=== PATIENT | female | born 1940 | race Caucasian/White ===

== ENCOUNTER 2021-12-15 11:24 | Emergency (ER) | payer MEDICARE, SELFPAY ==
[2021-12-15 11:34] VITALS: BP 168/87; PULSE 96; RESP 20; TEMP 36.4; O2SAT 95
--- NOTE | 2021-12-15 11:36 | XR_ITS ---
WS: [id number] Exam: XR chest 1V portable [id number] Date/Time of Exam: 12/15/2021 11:43 AM Reason For Exam: cp No comparisons. The lungs are fully expanded and clear. Normal cardiomediastinal silhouette. No pleural effusions. Le voscoliosis of the T-spine. Bony structures are otherwise intact. XR/XR chest 1V portable [id number] IMPRESSION: 1. No acute cardiopulmonary finding.
--- NOTE | 2021-12-15 11:38 | W.ED.CHESTPA ---
HPI - Chest Pain General: Chief Complaint: Chest Pain Stated Complaint: Chest Pain, PCP said she had a minor stroke Time Seen by Provider: 12/15/21 11:31 History of Present Illness: 81-year-old female presents with chest pain. She reports that started last night during the night. Patient reports that she has had 3 brief episodes. Nothing seems to make it worse or better. She is not currently having any pain at this time. Her last time she had any chest pain was around 6 AM this morning. She reports it is kind of diffusely across her mid chest. She had no nausea, vomiting, shortness of breath, diaphoresis or radiation of the pain. Associated symptoms: Deny abdominal pain, dyspnea, fever(s), nausea, palpitations or vomiting Review of Systems Const: Denies: fever(s) or chills Eyes: Denies: change in vision Card: Reports: chest pain; Denies: palpitations, irregular heart rhythm, edema or lightheadedness Resp: Denies: dyspnea or productive cough GI: Denies: abdominal pain, nausea or vomiting : Denies: flank pain or difficulty voiding Musc: Reports: back pain (chronic ); Denies: neck pain Neuro: Denies: headache(s) or numbness in extremities Psych: Denies: anxiety or depression Rio/Lymph: Denies: easy bruising Physical Exam Const: COMMON NORMALS: no acute distress, patient oriented x3 and alert Chest: CHEST: Yes Symmetrical chest wall rise Resp: COMMON NORMALS: normal respiratory effort, No retractions, No use of accessory muscles and clear to auscultation bilaterally AUSCULTATION: clear to auscultation bilaterally Cardio: COMMON NORMALS: regular rate, regular rhythm and Peripheral pulses 2+ throughout RATE: regular rate RHYTHM: regular rhythm PERIPHERAL PULSES: Peripheral pulses 2+ throughout GI: COMMON NORMALS: Normal to inspection, nondistended, normoactive bowel sounds present and Soft to palpation PALPATION: Yes Soft to palpation Neuro: COMMON NORMALS: patient oriented x3 and CN's II-XII intact bilaterally SENSORIUM/ORIENTATION: Yes alert Psych: COMMON NORMALS: mental status grossly normal, cooperative and normal affect Skin: COMMON NORMALS: no rashes or lesions noted GENERAL SKIN EXAM: no rashes or lesions noted Course Vital Signs: Vital signs: Vital Signs Temperature 97.6 F 12/15/21 13:15 Pulse Rate 96 12/15/21 13:15 Respiratory Rate 20 H 12/15/21 13:15 Blood Pressure 157/82 12/15/21 16:11 Pulse Oximetry 95 12/15/21 16:11 Oxygen Delivery Me thod 12/15/21 14:56 MDM - Chest Pain Medical Decision Making Patient with new negative troponins. Patient symptoms has been going on and off for 3 days with no symptoms for at least 6+ hours. Patient patient shows no acute findings on EKG. Patient does have urinary tract infection which could contribute to her generalized malaise which we will treat. Patient stable and will be discharged home. I recommended she follow-up with her primary care provider for further outpatient management Lab Data : 12/15/21 12:20 12/15/21 12:20 Radiology Impressions Chest X-Ray 12/15/21 11:36 IMPRESSION: 1. No acute cardiopulmonary finding. Laboratory Results WBC 7.9 10^3/uL (4.0-10.0) 12/15/21 12:20 RBC 4.73 10^6/uL (4.1-5.3) 12/15/21 12:20 Hgb 14.8 g/dL (11.5-15.3) 12/15/21 12:20 Hct 44.6 % (37.0-47.0) 12/15/21 12:20 MCV 94.3 fl (81-99) 12/15/21 12:20 MCH 31.3 pg (28.0-34.0) 12/15/21 12:20 MCHC 33.2 g/dL (30.0-36.0) 12/15/21 12:20 RDW 12.7 % (12.1-15.1) 12/15/21 12:20 Plt Count 204 10^3/cmm (130-400) 12/15/21 12:20 MPV 10.7 fL (7.4-10.4) H 12/15/21 12:20 Neut % (Auto) 73.7 % 12/15/21 12:20 Lymph % (Auto) 17.7 % 12/15/21 12:20 [place] % (Auto) 7.1 % 12/15/21 12:20 Eos % (Auto) 0.6 % 12/15/21 12:20 Baso % (Auto) 0.5 % 12/15/21 12:20 Neut # (Auto) 5.80 10^3/uL (1.8-7.7) 12/15/21 12:20 Lymph # (Auto) 1.4 10^3/uL (0.8-4.8) 12/15/21 12:20 [place] # (Auto) 0.6 10^3/uL (0.2-0.9) 12/15/21 12:20 Eos # (Auto) 0.1 10^3/uL (0.0-0.8) 12/15/21 12:20 Baso # (Auto) 0.0 10^3/uL (0.0-0.1) 12/15/21 12:20 Nucleated RBC % (auto) 0 % 12/15/21 12:20 Nucleated RBCs # 0.0 /100WBC 12/15/21 12:20 Sodium 141 mmol/L (136-145) 12/15/21 12:20 Potassium 4.2 mmol/L (3.5-5.1) 12/15/21 12:20 Chloride 102 mmol/L (98-107) 12/15/21 12:20 Carbon Dioxide 27 mmol/L (22-29) 12/15/21 12:20 Anion Gap 16.2 (5-19) 12/15/21 12:20 BUN 18 mg/dL (8-23) 12/15/21 12:20 Creatinine 0.6 mg/dL (0.5-0.9) 12/15/21 12:20 GFR Calculation Not Reportable 12/15/21 12:20 Glucose 91 mg/dL (65-115) 12/15/21 12:20 Calculated Osmolality 293 mOsm/kg (285-295) 12/15/21 12:20 Calcium 10.2 mg/dL (8.5-10.5) 12/15/21 12:20 Total Bilirubin 0.6 mg/dL (0.15-1.2) 12/15/21 12:20 AST 18 U/L (0-32) 12/15/21 12:20 ALT 23 U/L (0-33) 12/15/21 12:20 Alkaline Phosphatase 106 U/L (35-105) H 12/15/21 12:20 Troponin T Baseline 16 ng/L (0-10) H 12/15/21 12:20 Troponin T 120 Minute 14.93 ng/L (0-10) H 12/15/21 14:23 Delta Troponin T -1.07 ABS# (0-10) L 12/15/21 14:23 NT-Pro-B Natriuret Pep 407 pg/mL (0-450) 12/15/21 12:20 Total Protein 7.1 g/dL (6.6-8.7) 12/15/21 12:20 Albumin 4.5 g/dL (3.5-5.2) 12/15/21 12:20 Globulin 2.6 g/dL (1.3-4.6) 12/15/21 12:20 Lipase 20 U/L (13-60) 12/15/21 12:20 Urine Color Dark yellow (Yellow) 12/15/21 12:57 Urine Appearance Clear (CLEAR) 12/15/21 12:57 Urine pH 5 (5-7) 12/15/21 12:57 Ur Specific [place] 1.025 (1.005-1.030) 12/15/21 12:57 Urine Protein 1+ (Negative) H 12/15/21 12:57 Urine Glucose (UA) Norm (Normal) 12/15/21 12:57 Urine Ketones 2+ (Negative) H 12/15/21 12:57 Urine Blood 2+ (Negative) H 12/15/21 12:57 Urine Nitrate Positive (Negative) H 12/15/21 12:57 Urine Bilirubin Neg (Negative) 12/15/21 12:57 Urine Urobilinogen Neg mg/dL (Negative) 12/15/21 12:57 Ur Leukocyte Esterase Negative (Negative) 12/15/21 12:57 Urine RBC 0-4 /hpf (0-2) H 12/15/21 12:57 Urine WBC 15-25 /hpf (0-5) H 12/15/21 12:57 Ur Squamous Epith Cells 0-4 /hpf (0-5) H 12/15/21 12:57 Amorphous Sediment Not Reportable 12/15/21 12:57 Urine Bacteria 3+ /hpf (NONE) H 12/15/21 12:57 Urine Mucus 1+ /hpf 12/15/21 12:57 EKG Data EKG 1: I personally reviewed and interpreted this EKG as follows: EKG interpretation date: 12/15/21 EKG interpretation time: 11:41 Interpretation: Sinus rhythm, ventricular rate 89, first-degree block, IN 228. QRS 102 QTC 394, chronic changes, no acute ST elevation EKG 2: I personally reviewed and interpreted this EKG as follows: EKG interpretation date: 12/15/21 EKG interpretation time: 14:36 Interpretation: Heart rate 80, sinus rhythm, IN 183, QRS 98, QTc 388, unchanged from previous EKG Discharge Plan Discharge Patient Disposition: Home Clinical Impression: Chest pain, Acute cystitis with hematuria Condition: Stable Prescriptions: New cephalexin 500 mg capsule 500 mg PO Q6H 7 Days Qty: 28 0RF No Action atorvastatin 40 mg tablet 40 mg PO BEDTIME clopidogrel 75 mg tablet 75 mg PO DAILY Aspir-81 81 mg Tablet,Delayed Release (Dr/Ec) 81 mg PO DAILY DILT-XR 120 mg capsule,ext.rel 24h degradable 120 mg PO DAILY lisinopril 5 mg tablet 5 mg PO QPM Women's Multivitamin Gummies 200 mcg Tablet,Chewable 1 tab PO DAILY Discharge Orders: Discharge ED (Routine); Ordered 12/15/21 Ordered By: Eren Blanco Referrals: Mau Hutson [Primary Care Provider] - Discharge Diet: Usual diet Discharge Activity: Resume usual activity Patient Instructions: Opioid Safety, Pain Management Activity Restrictions/Additional Instructions: Please follow-up with Dr. Hutson for further outpatient evaluation and testing. Return to the ER as needed Coding Level of Care Code ED Vehicle Assembly Inspector for Chg Fwd Exam Comprehensive
--- NOTE | 2021-12-15 11:39 | ECG_ITS ---
[facility] Test Date: 2021-12-15 Pat Name: Jinny Milner Department: Room: Gender: Female Cartographic Drafter: : 1940 Requested By: Eren Blanco Order Number: [id number] Harsh MD: Ivon Corado M.D. Measurements Intervals [place] Rate: 89 P: 76 PA: 228 QRS: -45 QRSD: 102 T: 85 QT: 344 QTc: 419 Interpretive Statements SINUS RHYTHM WITH FIRST DEGREE AV BLOCK LEFT ANTERIOR FASCICULAR BLOCK [QRS AXIS <= -45, QR IN I, RS IN II] LEFT VENTRICULAR HYPERTROPHY AND ST-T CHANGE [VOLTAGE CRITERIA PLUS ST/T ABNORMALITY] POSSIBLE SEPTAL MYOCARDIAL INFARCTION , OF INDETERMINATE AGE [30 ms Q WAVE IN V1/V2] No previous ECG available for comparison Electronically Signed On 12-15-2021 22:54:11 CDT by Ivon Corado M.D. [id number]
[2021-12-15 12:43] LABS: Basophils % 0.5 %; Eosinophils # 0.1 10^3/uL (0.0-0.8); Eosinophils % 0.6 %; Hematocrit 44.6 % (37.0-47.0); Hemoglobin 14.8 g/dL (11.5-15.3); Lymphocytes # 1.4 10^3/uL (0.8-4.8); Lymphocytes % 17.7 %; Mean Corpuscular HGB Conc 33.2 g/dL (30.0-36.0); Mean Corpuscular Hemoglobin 31.3 pg (28.0-34.0); Mean Corpuscular Volume 94.3 fl (81-99); Mean Platelet Volume 10.7 fL (7.4-10.4); Monocytes # 0.6 10^3/uL (0.2-0.9); Monocytes % 7.1 %; Neutrophils % 73.7 %; Nucleated Red Blood Cells % 0 %; Platelet Count 204 10^3/cmm (130-400); Red Blood Count 4.73 10^6/uL (4.1-5.3); Red Cell Distribution Width 12.7 % (12.1-15.1); White Blood Count 7.9 10^3/uL (4.0-10.0)
[2021-12-15 13:06] LABS: Troponin(5th) Baseline 16 ng/L (0-10)
[2021-12-15 13:09] LABS: Alanine Aminotransferase 23 U/L (0-33); Albumin Level 4.5 g/dL (3.5-5.2); Alkaline Phosphatase 106 U/L (35-105); Anion Gap 16.2 (5-19); Aspartate Amino Transferase 18 U/L (0-32); Blood Urea Nitrogen 18 mg/dL (8-23); Calcium 10.2 mg/dL (8.5-10.5); Carbon Dioxide 27 mmol/L (22-29); Chloride 102 mmol/L (98-107); Globulin 2.6 g/dL (1.3-4.6); Glucose 91 mg/dL (65-115); Lipase 20 U/L (13-60); NT Pro B Type Natriuretic Pept 407 pg/mL (0-450); Osmolality Calculated 293 mOsm/kg (285-295); Potassium 4.2 mmol/L (3.5-5.1); Sodium 141 mmol/L (136-145); Total Bilirubin 0.6 mg/dL (0.15-1.2); Total Protein 7.1 g/dL (6.6-8.7)
[2021-12-15 13:13] LABS: Urine Appearance Clear (CLEAR); Urine Color Dark Yellow (Yellow)
[2021-12-15 13:14] LABS: Add Urine Microscopic? YES; Bilirubin Urine Neg (Negative); Blood Urine 2+ (Negative); Glucose Urine UA Norm (Normal); Ketones Urine 2+ (Negative); Leukocyte Esterase Urine Negative (Negative); Nitrate Urine Positive (Negative); Protein Urine 1+ (Negative); Specific Gravity, Urine 1.025 (1.005-1.030); Urobilinogen Urine Neg (Negative); pH Urine 5 (5-7)
[2021-12-15 13:15] VITALS: BP 127/82; PULSE 96; RESP 20; TEMP 36.4; O2SAT 95
--- NOTE | 2021-12-15 13:16 | PC.NURSE ---
Patient is on continuous CM and SP02 monitor.
[2021-12-15 13:26] LABS: Bacteria Urine 3+ /hpf; Mucus Urine 1+ /hpf; RBC Urine 0-4 /hpf (0-2); Squamous Epithelial Cell Urine 0-4 /hpf (0-5); WBC Urine 15-25 /hpf (0-5)
[2021-12-15 13:27] LABS: Add Urine Culture? Yes
--- NOTE | 2021-12-15 14:35 | ECG_ITS ---
[facility] Test Date: 2021-12-15 Pat Name: Jinny Milner Department: Room: Gender: Female Pain Medicine Physician: : 1940 Requested By: Eren Balnco Order Number: [id number] Harsh MD: Ivon Corado M.D. Measurements Intervals [place] Rate: 80 P: 71 [place]: 183 QRS: -33 QRSD: 98 T: 83 QT: 352 QTc: 408 Interpretive Statements SINUS RHYTHM LEFT AXIS DEVIATION [QRS AXIS < -30] SEPTAL MYOCARDIAL INFARCTION , OF INDETERMINATE AGE [40+ ms Q WAVE IN V1/V2] Compared to ECG 12/15/2021 11:39:32 Left-axis deviation now present First degree AV block no longer present Left anterior fascicular block no longer present Left ventricular hypertrophy no longer present ST (T wave) deviation no longer present Myocardial infarct finding still present Electronically Signed On 12-15-2021 23:07:17 CDT by Ivon Corado M.D. [id number]
[2021-12-15 14:52] LABS: Troponin 5 2HR 14.93 ng/L (0-10)
[2021-12-15 14:55] LABS: Troponin 5 2HR Delta -1.07 ABS# (0-10)
[2021-12-15 14:56] VITALS: BP 146/73; O2SAT 94
[2021-12-15 16:11] VITALS: BP 157/82; O2SAT 95
== END 2021-12-15 16:12 | disposition home or self-care (01) ==
PROVIDERS: Emergency Provider Student in an Organized Health Care Education/Training Program
DX: R07.9 Chest pain, unspecified (principal); N30.01 Acute cystitis with hematuria; Z79.82 Long term (current) use of aspirin; Z79.02 Long term (current) use of antithrombotics/antiplatelets
CPT/HCPCS: 51701; 71045; 80053; 81001; 83690; 83880; 84484; 85025; 87077; 87086; 87186; 93005; 99285

== ENCOUNTER 2022-04-17 13:54 | Emergency (ER) | payer MEDICARE, SELFPAY ==
[2022-04-17 14:05] VITALS: BP 102/65; PULSE 95; RESP 16; TEMP 36.3; O2SAT 97; BMI 19.8
--- NOTE | 2022-04-17 16:00 | W.ED.FEVER ---
HPI - Fever General: Chief Complaint: Fever Stated Complaint: Fever, N/V, Chest heaviness, Cough Time Seen by Provider: 04/17/22 16:00 History of Present Illness: Ms. Milner is an 81-year-old lady with history of arrhythmia and hypertension presenting to the emergency department for respiratory symptoms and generalized malaise. She reports approximately 2 weeks of flulike symptoms with respiratory symptoms that have worsened over the past 4 days. She notes cough, shortness of breath, productive sputum, congestion, fevers, generalized malaise. She has generalized body aches and some diarrhea. Density symptoms is moderate to severe. Course has worsened. Onset (ago): week(s) Context: sick contacts Exacerbating factors: exertion Relieving factors: nothing Associated symptoms: Reports chills, cough, myalgias, nausea and rhinorrhea Review of Systems General: Reports: 10 or more systems reviewed and unremarkable except in HPI and below Const: Reports: chills GI: Reports: nausea PFSH ED PFSH: Medical History Arrhythmia Hypertension Surgical History No significant past surgical history Physical Exam Const: COMMON NORMALS: alert GENERAL APPEARANCE: cooperative, well developed and ill appearing HENMT: COMMON NORMALS: normocephalic and atraumatic HEAD & SCALP: normocephalic and atraumatic THROAT: posterior oropharynx normal Eye: COMMON NORMALS: conjunctivae normal CONJUNCTIVA: Yes conjunctivae normal SCLERA: sclerae normal Neck/C-Spine: COMMON NORMALS: supple GENERAL: Yes trachea midline Resp: EFFORT & INSPECTION: Yes able to speak in complete sentences AUSCULTATION: rhonchi Cardio: COMMON NORMALS: regular rate and regular rhythm RATE: regular rate RHYTHM: regular rhythm GI: COMMON NORMALS: Soft to palpation PALPATION: Yes Soft to palpation and No Tenderness to palpation present (GI) Extremity: GENERAL: Yes normal exam except as noted and No edema Neuro: COMMON NORMALS: moves all extremities SENSORIUM/ORIENTATION: Yes alert and No Orientation impaired Psych: COMMON NORMALS: mental status grossly normal and Normal thought process present THOUGHT PROCESS: Normal thought process present Course Vital Signs: Vital signs: Vital Signs Temperature 98.7 F 04/17/22 19:23 Pulse Rate 89 04/17/22 19:59 Respiratory Rate 20 H 04/17/22 19:59 Blood Pressure 121/62 04/17/22 19:59 Pulse Oximetry 91 04/17/22 19:59 Oxygen Delivery Me thod 04/17/22 19:59 MDM - Fever Medical Decision Making 81-year-old lady presenting with respiratory symptoms for 2 weeks. Patient is mildly ill-appearing however nontoxic. EKG notable for sinus rhythm, left axis deviation, first-degree AV block, nonspecific ST segment abnormalities, no STEMI. Hematologic panel with mild leukocytosis, no significant metabolic abnormalities. Negative range 2-hour delta troponin. BNP is mildly elevated. Rapid viral testing negative. Chest x-ray with right lung base infiltrates, no pneumothorax. Patient treated with antibiotics for CAP and IV fluids. On reassessment patient feels improved. I discussed disposition options and the patient is comfortable with trial of therapy at home. Plan to treat for community-acquired pneumonia. The results of ED evaluation were discussed with the patient including prescriptions and/or symptomatic cares (if applicable) including appropriate and responsible use, followup plan, and return precautions. The patient verbalized understanding and felt safe for discharge. Medical Records I reviewed the patient's medical records. Lab Data I reviewed the patient's lab results. 04/17/22 16:17 04/17/22 16:17 Radiology Impressions Chest X-Ray 04/17/22 16:05 IMPRESSION: Bronchitis with pneumonia versus aspiration in the right lung base. Laboratory Results WBC 11.3 10^3/uL (4.0-10.0) H 04/17/22 16:17 RBC 4.37 10^6/uL (4.1-5.3) 04/17/22 16:17 Hgb 13.3 g/dL (11.5-15.3) 04/17/22 16:17 Hct 40.3 % (37.0-47.0) 04/17/22 16:17 MCV 92.2 fl (81-99) 04/17/22 16:17 MCH 30.4 pg (28.0-34.0) 04/17/22 16:17 MCHC 33.0 g/dL (30.0-36.0) 04/17/22 16:17 RDW 12.5 % (12.1-15.1) 04/17/22 16:17 Plt Count 187 10^3/cmm (130-400) 04/17/22 16:17 MPV 10.4 fL (7.4-10.4) 04/17/22 16:17 Neut % (Auto) 83.9 % 04/17/22 16:17 Lymph % (Auto) 9.9 % 04/17/22 16:17 [place] % (Auto) 5.5 % 04/17/22 16:17 Eos % (Auto) 0.1 % 04/17/22 16:17 Baso % (Auto) 0.2 % 04/17/22 16:17 Neut # (Auto) 9.46 10^3/uL (1.8-7.7) H 04/17/22 16:17 Lymph # (Auto) 1.1 10^3/uL (0.8-4.8) 04/17/22 16:17 [place] # (Auto) 0.6 10^3/uL (0.2-0.9) 04/17/22 16:17 Eos # (Auto) 0.0 10^3/uL (0.0-0.8) 04/17/22 16:17 Baso # (Auto) 0.0 10^3/uL (0.0-0.1) 04/17/22 16:17 Nucleated RBC % (auto) 0 % 04/17/22 16:17 Nucleated RBCs # 0.0 /100WBC 04/17/22 16:17 Sodium 136 mmol/L (136-145) 04/17/22 16:17 Potassium 3.7 mmol/L (3.5-5.1) 04/17/22 16:17 Chloride 99 mmol/L (98-107) 04/17/22 16:17 Carbon Dioxide 23 mmol/L (22-29) 04/17/22 16:17 Anion Gap 17.7 (5-19) 04/17/22 16:17 BUN 25 mg/dL (8-23) H 04/17/22 16:17 Creatinine 0.8 mg/dL (0.5-0.9) 04/17/22 16:17 GFR Calculation Not Reportable 04/17/22 16:17 Glucose 127 mg/dL (65-115) H 04/17/22 16:17 Calculated Osmolality 288 mOsm/kg (285-295) 04/17/22 16:17 Lactate 1.3 mmol/L (0.5-2.2) 04/17/22 16:17 Calcium 9.7 mg/dL (8.5-10.5) 04/17/22 16:17 Total Bilirubin 0.8 mg/dL (0.15-1.2) 04/17/22 16:17 AST 22 U/L (0-32) 04/17/22 16:17 ALT 21 U/L (0-33) 04/17/22 16:17 Alkaline Phosphatase 87 U/L (35-105) 04/17/22 16:17 Troponin T Baseline 23 ng/L (0-10) H 04/17/22 16:17 Troponin T 120 Minute 19.92 ng/L (0-10) H 04/17/22 19:00 Delta Troponin T -3.08 ABS# (0-10) L 04/17/22 19:00 C-Reactive Protein 168.3 mg/L (0.0-4.9) H 04/17/22 16:17 NT-Pro-B Natriuret Pep 1429 pg/mL (0-450) H 04/17/22 16:17 Total Protein 6.8 g/dL (6.6-8.7) 04/17/22 16:17 Albumin 3.9 g/dL (3.5-5.2) 04/17/22 16:17 Globulin 2.9 g/dL (1.3-4.6) 04/17/22 16:17 TSH 3.22 uIU/mL (0.27-4.20) 04/17/22 16:17 Influenza Type A Ag negative (Negative) 04/17/22 16:30 Influenza Type B Ag negative (Negative) 04/17/22 16:30 SARS-CoV-2 Ag (Rapid) negative (Negative) 04/17/22 16:30 Discharge Plan Discharge Patient Disposition: Home Clinical Impression: Community acquired pneumonia Condition: Stable Prescriptions: New albuterol sulfate 90 mcg/actuation HFA aerosol inhaler 2 inh inhalation Q4H PRN (Reason: shortness of breath or wheezing) Qty: 8.5 0RF No Action atorvastatin 40 mg tablet 40 mg PO BEDTIME clopidogrel 75 mg tablet 75 mg PO DAILY Aspir-81 81 mg Tablet,Delayed Release (Dr/Ec) 81 mg PO DAILY DILT-XR 120 mg capsule,ext.rel 24h degradable 120 mg PO DAILY lisinopril 5 mg tablet 5 mg PO QPM Women's Multivitamin Gummies 200 mcg Tablet,Chewable 1 tab PO DAILY Discharge Orders: Discharge ED (Routine); Ordered 04/17/22 Ordered By: Madan Briceño Referrals: Mau Hutson [Primary Care Provider] - Discharge Diet: Usual diet Discharge Activity: Increase activity as tolerated Patient Instructions: Bacterial Pneumonia (ED) Activity Restrictions/Additional Instructions: Thank you for visiting the emergency department. You were seen and evaluated for generalized illness. The most likely cause of your symptoms is pneumonia which will be treated with antibiotics. I would expect improvement in the next few days. Please also use your albuterol metered-dose inhaler 2 puffs every 4 hours for 24 hours followed by 2 puffs every 6 hours for 24 hours followed by 2 puffs every 8 hours for 24 hours and then return to the normal schedule. Please follow-up with your primary care provider. Return to the emergency department for worsening symptoms or anything else that you are concerned about and feel needs emergency department evaluation. Coding Level of Care Code ED Patient Service Associate for Kim Jolly
--- NOTE | 2022-04-17 16:05 | XRR_ITS ---
PROCEDURE INFORMATION: Exam: XR Chest Exam date and time: 04/17/2022 4:30 PM Age: 81 years old Clinical indication: Cough and shortness of breath; Additional info: Cough, SOB TECHNIQUE: Imaging protocol: Radiologic exam of the chest. Views: 1 view. COMPARISON: CR XR chest 1V portable [id number] 12/15/2021 11:44 AM FINDINGS: Lungs: Airspace opacity in the right lung base. Right lower lung bronchial wall thickening. The left lung is clear. Pleural spaces: Unremarkable. No pleural effusion. No pneumothorax. Heart/Mediastinum: Unremarkable. No cardiomegaly. Bones/joints: Unremarkable. XR/XR chest 1V portable [id number] IMPRESSION: Bronchitis with pneumonia versus aspiration in the right lung base.
--- NOTE | 2022-04-17 16:06 | ECG_ITS ---
[facility] Test Date: 2022-04-17 Pat Name: Jinny Milner Department: Room: Gender: Female Fibre Composite Technician: : 1940 Requested By: Madan Briceño Order Number: [id number] Harsh MD: David Waters M.D. Measurements Intervals [place] Rate: 85 P: 81 SD: 205 QRS: -59 QRSD: 104 T: 82 QT: 357 QTc: 427 Interpretive Statements SINUS RHYTHM LEFT AXIS DEVIATION [QRS AXIS < -30] PATTERN CONSISTENT WITH PULMONARY DISEASE SEPTAL MYOCARDIAL INFARCTION , OF INDETERMINATE AGE [40+ ms Q WAVE IN V1/V2] Compared to ECG 12/15/2021 14:35:55 No significant changes Electronically Signed On 04-17-2022 16:51:32 SERVICE ATTENDANT by David Waters M.D. [id number]
[2022-04-17 16:39] LABS: Basophils % 0.2 %; Eosinophils % 0.1 %; Hematocrit 40.3 % (37.0-47.0); Hemoglobin 13.3 g/dL (11.5-15.3); Lymphocytes # 1.1 10^3/uL (0.8-4.8); Lymphocytes % 9.9 %; Mean Corpuscular Hemoglobin 30.4 pg (28.0-34.0); Mean Corpuscular Volume 92.2 fl (81-99); Mean Platelet Volume 10.4 fL (7.4-10.4); Monocytes # 0.6 10^3/uL (0.2-0.9); Monocytes % 5.5 %; Neutrophils # 9.46 10^3/uL (1.8-7.7); Neutrophils % 83.9 %; Nucleated Red Blood Cells % 0 %; Platelet Count 187 10^3/cmm (130-400); Red Blood Count 4.37 10^6/uL (4.1-5.3); Red Cell Distribution Width 12.5 % (12.1-15.1); White Blood Count 11.3 10^3/uL (4.0-10.0)
[2022-04-17] MEDS: sodium chloride 0.9% 500 ML IV (16:41)
[2022-04-17 16:42] VITALS: BP 118/52; PULSE 91; RESP 16; O2SAT 92
[2022-04-17 16:57] LABS: Lactate (Lactic Acid level) 1.3 mmol/L (0.5-2.2)
[2022-04-17 17:09] LABS: Alanine Aminotransferase 21 U/L (0-33); Albumin Level 3.9 g/dL (3.5-5.2); Alkaline Phosphatase 87 U/L (35-105); Anion Gap 17.7 (5-19); Aspartate Amino Transferase 22 U/L (0-32); Blood Urea Nitrogen 25 mg/dL (8-23); C Reactive Protein 168.3 mg/L (0.0-4.9); Calcium 9.7 mg/dL (8.5-10.5); Carbon Dioxide 23 mmol/L (22-29); Chloride 99 mmol/L (98-107); Globulin 2.9 g/dL (1.3-4.6); Glucose 127 mg/dL (65-115); NT Pro B Type Natriuretic Pept 1429 pg/mL (0-450); Osmolality Calculated 288 mOsm/kg (285-295); Potassium 3.7 mmol/L (3.5-5.1); Sodium 136 mmol/L (136-145); Thyroid Stimulating Hormone 3.22 uIU/mL (0.27-4.20); Total Bilirubin 0.8 mg/dL (0.15-1.2); Total Protein 6.8 g/dL (6.6-8.7)
[2022-04-17 17:30] VITALS: BP 105/67; PULSE 83; RESP 16; O2SAT 93
[2022-04-17] MEDS: cefTRIAXone 1,000 MG in sodium chloride 0.9% (plus) 50 ML 100 MG IV (17:44)
[2022-04-17 18:05] LABS: Influenza A by IFA negative (Negative); Influenza B by IFA negative (Negative); SARS Covid-2 Antigen negative (Negative)
[2022-04-17] MEDS: doxycycline 100 MG in sodium chloride 0.9% (plus) 100 ML IV (18:14)
--- NOTE | 2022-04-17 18:29 | ECG_ITS ---
[facility] Test Date: 2022-04-17 Pat Name: Jinny Milner Department: Room: Gender: Female Asbestos Removal Supervisor: : 1940 Requested By: Madan Briceño Order Number: [id number] Harsh MD: Demond Garcia M.D. Measurements Intervals [place] Rate: 84 P: 81 MO: 241 QRS: -63 QRSD: 104 T: 88 QT: 361 QTc: 428 Interpretive Statements SINUS RHYTHM WITH SINUS ARRHYTHMIA WITH FIRST DEGREE AV BLOCK LEFT ANTERIOR FASCICULAR BLOCK [QRS AXIS <= -45, QR IN I, RS IN II] SEPTAL MYOCARDIAL INFARCTION , OF INDETERMINATE AGE [40+ ms Q WAVE IN V1/V2] Compared to ECG 04/17/2022 16:27:52 First degree AV block now present Left anterior fascicular block now present Left-axis deviation no longer present Myocardial infarct finding still present Electronically Signed On 04-18-2022 12:26:10 RESIDENT CARE MANAGER by Demond Garcia M.D. [id number]
[2022-04-17 18:51] LABS: Troponin(5th) Baseline 23 ng/L (0-10)
[2022-04-17 19:23] VITALS: BP 119/60; PULSE 83; RESP 16; TEMP 37.1; O2SAT 92
--- NOTE | 2022-04-17 19:23 | PC.NURSE ---
Report from Kerry, RN. Pt resting quietly. No needs at this time.
--- NOTE | 2022-04-17 19:24 | PC.NURSE ---
Rounding. No needs at this time. Call light in reach.
[2022-04-17 19:36] LABS: Troponin 5 2HR 19.92 ng/L (0-10)
[2022-04-17 19:47] LABS: Troponin 5 2HR Delta -3.08 ABS# (0-10)
[2022-04-17 19:59] VITALS: BP 121/62; PULSE 89; RESP 20; O2SAT 91
== END 2022-04-17 20:11 | disposition home or self-care (01) ==
PROVIDERS: Emergency Provider Emergency Medicine
DX: J18.9 Pneumonia, unspecified organism (principal); Z79.02 Long term (current) use of antithrombotics/antiplatelets; Z79.82 Long term (current) use of aspirin; Z20.822 Contact with and (suspected) exposure to COVID-19; J40 Bronchitis, not specified as acute or chronic; I10 Essential (primary) hypertension
CPT/HCPCS: 36415; 71045; 80053; 83605; 83880; 84443; 84484; 85025; 86140; 87040; 87426; 87804; 93005; 96365; 96366; 96367; 99285; J0696; J3490; J7040

== ENCOUNTER 2023-04-22 10:08 | Outpatient (CLI) | payer MEDICARE, SELFPAY ==
--- NOTE | 2023-04-22 | FL_ITS ---
xam: FL barium swallow modifd [id number] Date/Time of Exam: 04/22/2023 11:22 AM Reason For Exam: Oropharyngeal dysphagia Fluoroscopy time: Modified barium swallow was performed in conjunction with the speech therapy service. The patient experienced several episodes of mild penetration into the laryngeal inlet when ingesting thin liquid barium solutions. There was pooling of barium foodstuffs in the vallecula during the exam that could be cleared with repeat swallow. There was no aspiration identified. The patient swallowed a barium tablet without difficulty or complication. IMPRESSION: 1. Several episodes of penetration into the laryngeal inlet were noted when the patient swallowed thin liquid barium solution. 2. Pooling of pudding and solid barium mixture foodstuffs in the vallecula that could be cleared with a repeat swallow. 3. No aspiration was observed. A separate report with recommendations will follow from the speech therapy service. Minutes 3.7 # of spot films: 0 MTDD
== END 2023-04-22 10:09 | disposition home or self-care (01) ==
LOC: RAD 10:09
PROVIDERS: Visit Provider Family Medicine
DX: R13.12 Dysphagia, oropharyngeal phase (principal)
CPT/HCPCS: 74230; 92611